=== PATIENT | female | born 1975 | race Hispanic/Latino ===

== ENCOUNTER 2020-07-09 09:17 | Emergency (ER) | payer BC, OTHER ==
--- NOTE | 2020-07-09 10:22 | RAD REPORT ---
EXAM DESCRIPTION: RAD - Elbow Left 3 View - 07/09/2020 10:06 am CLINICAL HISTORY: Pain;Numbness/tingling COMPARISON: No comparisons FINDINGS: No fracture or dislocation seen.
--- NOTE | 2020-07-09 10:49 | EDPHYS ---
Physician Documentation [facility] Name: Carmen Butler Age: 44 yrs Sex: Female : 1975 Arrival Date: 07/09/2020 Time: 09:19 Bed 15 Private MD: ED Physician Ruben Escamilla HPI: 07/09 09:37 This 44 yrs old Female presents to ER via Unassigned with complaints of Fall snw Injury, Arm Pain. 09:37 Details of fall: The patient fell from an upright position, slipped in wet grass and snw landed on left elbow on the driveway. Onset: The symptoms/episode began/occurred suddenly, 5 day(s) ago, and became persistent. Associated injuries: The patient sustained left elbow, contusion, decreased range of motion, painful injury. Severity of symptoms: At their worst the symptoms were moderate. The patient has not experienced similar symptoms in the past. The patient has not recently seen a physician. pt taking tylenol and declines medication for pain at this time. Historical: - Allergies: 09:23 No Known Allergies; aa5 - PMHx: 09:23 Hypertension; aa5 - PSHx: 09:23 Tubal ligation; aa5 - Immunization history:: Adult Immunizations unknown. - Social history:: Smoking status: Patient denies any tobacco usage or history of. ROS: 09:37 Constitutional: Negative for fever, chills, and weight loss, Eyes: Negative for injury, snw pain, redness, and discharge, ENT: Negative for injury, pain, and discharge, Neck: Negative for injury, pain, and swelling, Cardiovascular: Negative for chest pain, palpitations, and edema, Respiratory: Negative for shortness of breath, cough, wheezing, and pleuritic chest pain, Abdomen/GI: Negative for abdominal pain, nausea, vomiting, diarrhea, and constipation, Back: Negative for injury and pain, : Negative for injury, bleeding, discharge, and swelling, Skin: Negative for injury, rash, and discoloration, Neuro: Negative for headache, weakness, numbness, tingling, and seizure, Psych: Negative for depression, anxiety, suicide ideation, homicidal ideation, and hallucinations. 09:37 MS/extremity: Positive for injury or acute deformity, decreased range of motion, pain, of the left elbow. Exam: 09:36 Constitutional: This is a well developed, well nourished patient who is awake, alert, snw and in no acute distress. Head/Face: Normocephalic, atraumatic. Eyes: Pupils equal round and reactive to light, extra-ocular motions intact. Lids and lashes normal. Conjunctiva and sclera are non-icteric and not injected. Cornea within normal limits. Periorbital areas with no swelling, redness, or edema. ENT: Nares patent. No nasal discharge, no septal abnormalities noted. Tympanic membranes are normal and external auditory canals are clear. Oropharynx with no redness, swelling, or masses, exudates, or evidence of obstruction, uvula midline. Mucous membranes moist. Neck: Trachea midline, no thyromegaly or masses palpated, and no cervical lymphadenopathy. Supple, full range of motion without nuchal rigidity, or vertebral point tenderness. No Meningismus. Chest/axilla: Normal chest wall appearance and motion. Nontender with no deformity. No lesions are appreciated. Cardiovascular: Regular rate and rhythm with a normal S1 and S2. No gallops, murmurs, or rubs. Normal PMI, no JVD. No pulse deficits. Respiratory: Lungs have equal breath sounds bilaterally, clear to auscultation and percussion. No rales, rhonchi or wheezes noted. No increased work of breathing, no retractions or nasal flaring. Abdomen/GI: Soft, non-tender, with normal bowel sounds. No distension or tympany. No guarding or rebound. No evidence of tenderness throughout. Back: No spinal tenderness. No costovertebral tenderness. Full range of motion. Skin: Warm, dry with normal turgor. Normal color with no rashes, no lesions, and no evidence of cellulitis. Neuro: Awake and alert, GCS 15, oriented to person, place, time, and situation. Cranial nerves II-XII grossly intact. Motor strength 5/5 in all extremities. Sensory grossly intact. Cerebellar exam normal. Normal gait. Psych: Awake, alert, with orientation to person, place and time. Behavior, mood, and affect are within normal limits. 09:36 Musculoskeletal/extremity: Extremities: grossly normal except: noted in the left radial head area: decreased ROM, swelling, tenderness, Circulation is intact in all extremities. Sensation intact. occasional tingling to left fingers with different movements Vital Signs: 09:23 BP 147 / 76; Pulse 67; Resp 16 S; Temp 98.5(O); Pulse Ox 100% on R/A; Weight 72.57 kg aa5 (R); Height 4 ft. 11 in. (149.86 cm) (R); Pain 2/10; 11:06 BP 117 / 65; Pulse 62; Resp 14; Pulse Ox 96% on R/A; zb 09:23 Body Mass Index 32.32 (72.57 kg, 149.86 cm) aa5 MDM: 09:31 Patient medically screened. snw 10:50 Data reviewed: vital signs, nurses notes. Data interpreted: Pulse oximetry: on room air snw is 100 %. Interpretation: normal. Counseling: I had a detailed discussion with the patient and/or guardian regarding: the historical points, exam findings, and any diagnostic results supporting the discharge/admit diagnosis, the presence of at least one elevated blood pressure reading (>120/80) during this emergency department visit, radiology results, the need for outpatient follow up, to return to the emergency department if symptoms worsen or persist or if there are any questions or concerns that arise at home. Special discussion: I have referred the patient to see his PCP for further evaluation of high blood pressure. Based on the history and exam findings, there is no indication for further emergent testing or inpatient evaluation. I discussed with the patient/guardian the need to see the orthopedic surgeon for further evaluation of the symptoms. I discussed with the patient/guardian the need to see the primary care provider for further evaluation of the symptoms. 07/09 09:36 Order name: Elbow Left 3 View XRAY; Complete Time: 10:26 snw Administered Medications: No medications were administered Disposition: 07/10 07:48 Co-signature as Attending Physician, Ruben Escamilla MD I agree with the assessment and kdr plan of care. Disposition: 07/09/20 10:48 Discharged to Home. Impression: Fall on same level from slipping, tripping and stumbling, Left elbow contusion. - Condition is Stable. - Discharge Instructions: Fall Prevention in the Home, RICE for Routine Care of Injuries, Elbow Contusion, How to Use a Sling. - Prescriptions for Diclofenac Sodium 75 mg Oral Tablet Sustained Release - take 1 tablet by ORAL route 2 times per day; 30 tablet. orphenadrine citrate 100 mg Oral Tablet Sustained Release - take 1 tablet by ORAL route 2 times per day As needed; 20 tablet. - Medication Reconciliation Form, Thank You Letter, Antibiotic Education, Prescription Opioid Use form. - Follow up: Emergency Department; When: As needed; Reason: Worsening of condition. Follow up: Private Physician; When: 2 - 3 days; Reason: Recheck today's complaints, Continuance of care, Re-evaluation by your physician. Signatures: Dispatcher [employer] EDMS Ruben Escamilla MD MD kdr Waters, Shelly, INTERNET SYSTEMS ADMINISTRATOR-C INTERNET SYSTEMS ADMINISTRATOR-Csnw Babs Benjamin, RN RN aa5 Brandie Putnam RN RN zb Corrections: (The following items were deleted from the chart) 07/09 11:08 10:48 07/09/2020 10:48 Discharged to Home. Impression: Fall on same level from zb slipping, tripping and stumbling; Left elbow contusion. Condition is Stable. Forms are Medication Reconciliation Form, Thank You Letter, Antibiotic Education, Prescription Opioid Use. Follow up: Emergency Department; When: As needed; Reason: Worsening of condition. Follow up: Private Physician; When: 2 - 3 days; Reason: Recheck today's complaints, Continuance of care, Re-evaluation by your physician. snw
--- NOTE | 2020-07-09 10:49 | ER ---
Nurse's Notes [facility] Name: Carmen Butler Age: 44 yrs Sex: Female : 1975 Arrival Date: 07/09/2020 Time: : Bed 15 Private MD: Diagnosis: Fall on same level from slipping, tripping and stumbling;Left elbow contusion Presentation: 07/09 09:23 Chief complaint: Patient states: "I slipped on some mud and fell a few days ago and aa5 landed on concrete". pt c/o pain to left arm, worse to left elbow. 09:23 Acuity: NATHALY 4 aa5 09:23 Method Of Arrival: Ambulatory aa5 :23 Coronavirus screen: Client denies travel out of the [place] in the last 14 days. At this aa5 time, the client does not indicate any symptoms associated with coronavirus-19. Ebola Screen: Patient negative for fever greater than or equal to 101.5 degrees Fahrenheit, and additional compatible Ebola Virus Disease symptoms. Initial Sepsis Screen: Does the patient meet any 2 criteria? No. Patient's initial sepsis screen is negative. Does the patient have a suspected source of infection? No. Patient's initial sepsis screen is negative. Risk Assessment: Do you want to hurt yourself or someone else? Patient reports no desire to harm self or others. 09:23 Onset of symptoms was June 2020. aa5 Historical: - Allergies: 09: No Known Allergies; aa5 - PMHx: 09: Hypertension; aa5 - PSHx: : Tubal ligation; aa5 - Immunization history:: Adult Immunizations unknown. - Social history:: Smoking status: Patient denies any tobacco usage or history of. Screenin:27 Abuse screen: Denies threats or abuse. Denies injuries from another. Nutritional zb screening: No deficits noted. Tuberculosis screening: No symptoms or risk factors identified. Fall Risk None identified. Assessment: 10:25 General: Appears in no apparent distress. uncomfortable, Behavior is calm, cooperative, zb appropriate for age. Pain: Complains of pain in left arm Pain does not radiate. Pain currently is 3 out of 10 on a pain scale. Quality of pain is described as burning, aching, Pain began "couple days ago" Is continuous. Neuro: Level of Consciousness is awake, alert, obeys commands, Oriented to person, place, time, situation. Cardiovascular: Capillary refill < 3 seconds in bilateral fingers Patient's skin is warm and dry. Respiratory: Airway is patent Respiratory effort is even, unlabored, Respiratory pattern is regular, symmetrical. GI: Abdomen is round non-distended. : No signs and/or symptoms were reported regarding the genitourinary system. EENT: No signs and/or symptoms were reported regarding the EENT system. Derm: Skin is intact, is healthy with good turgor, Skin is pink, warm \\T\\ dry. Musculoskeletal: Capillary refill < 3 seconds, in bilateral fingers. Range of motion: limited in left arm Swelling present in left arm. 11:00 Reassessment: Patient appears in no apparent distress at this time. Patient and/or zb family updated on plan of care and expected duration. Pain level reassessed. Patient is alert, oriented x 3, equal unlabored respirations, skin warm/dry/pink. discussed POC. PVU. given sling. Vital Signs: 09:23 BP 147 / 76; Pulse 67; Resp 16 S; Temp 98.5(O); Pulse Ox 100% on R/A; Weight 72.57 kg aa5 (R); Height 4 ft. 11 in. (149.86 cm) (R); Pain 2/10; 11:06 BP 117 / 65; Pulse 62; Resp 14; Pulse Ox 96% on R/A; zb 09:23 Body Mass Index 32.32 (72.57 kg, 149.86 cm) aa5 ED Course: 09:19 Patient arrived in ED. ag5 09:23 Arm band placed on Patient placed in an exam room, on a stretcher. aa5 09:30 Flavia Mathews FNP-C is PHCP. snw 09:30 Ruben Escamilla MD is Attending Physician. snw 09:45 Triage completed. aa5 10:06 Elbow Left 3 View XRAY In Process Unspecified. EDMS 10:24 Brandie Putnam RN is Primary Nurse. zb 10:27 Patient has correct armband on for positive identification. Door closed. Noise zb minimized. Warm blanket given. 11:07 No provider procedures requiring assistance completed. Patient did not have IV access zb during this emergency room visit. Administered Medications: No medications were administered Outcome: 10:48 Discharge ordered by MD. ferreira 11:07 Discharged to home ambulatory. benito 11:07 Condition: stable 11:07 Discharge instructions given to patient, Instructed on discharge instructions, follow up and referral plans. medication usage, Demonstrated understanding of instructions, follow-up care, medications, Prescriptions given X 2. 11:08 Patient left the ED. benito Signatures: Dispatcher [employer] EDMS Flavia Mathews, TIRE MAN-C TIRE MAN-Csnw Babs Benjamin, RN RN tyler5 Abby Devries5 Brandie Putnam, RN RN benito
[2020-07-10 10:02] VITALS: TEMP 98.5
[2020-07-10 10:07] VITALS: BP 117/65; O2SAT 96
== END 2020-07-09 11:08 | disposition home or self-care (01) ==
LOC: ER 09:17
DX: S50.02XA Contusion of left elbow, initial encounter (principal); W01.0XXA Fall on same level from slipping, tripping and stumbling without subsequent striking against object, initial encounter; Y93.01 Activity, walking, marching and hiking; Y92.89 Other specified places as the place of occurrence of the external cause; I10 Essential (primary) hypertension
CPT/HCPCS: 99283

== ENCOUNTER 2020-08-15 06:12 | Emergency (ER) | payer BC ==
[2020-08-15] MEDS ORDERED: ACETAMINOPHEN 500 MG TAB ONE (08:23)
[2020-08-15 08:52] LABS: Protime INR 1.03
[2020-08-15 08:57] LABS: Basophils % 0.3 % (0-1.3); Hematocrit 43.9 % (36.0-45.0); Lymphocytes % 12.6 % (15.3-44.8); RBC Red Blood Cell Count 4.79 M/uL (3.86-4.86)
[2020-08-15 09:09] LABS: BUN Blood Urea Nitrogen 12 mg/dL (7-18); Bicarbonate 25 mmol/L (21-32); Ferritin 100.4 ng/mL (8-388); Glucose Level 96 mg/dL (74-106); Potassium 3.7 mmol/L (3.5-5.1); Sodium Level 134 mmol/L (136-145); Troponin (Emerg Dept Use Only) < 0.02 ng/mL (0.0-0.045)
[2020-08-15] MEDS ORDERED: METHYLPREDNISOLONE 125 MG INJ ONE (10:04)
[2020-08-15] MEDS ORDERED: NA CHLORIDE 0.9% 500 ML ONE (10:04)
--- NOTE | 2020-08-15 11:37 | RAD REPORT ---
EXAM DESCRIPTION: Gab Single View08/15/2020 8:35 am CLINICAL HISTORY: Cough COMPARISON: 2014 FINDINGS: Mild bilateral pulmonary opacities. The heart is normal size IMPRESSION: Mild bilateral pulmonary opacities probably pneumonia
--- NOTE | 2020-08-15 12:06 | ER ---
Nurse's Notes [facility] Name: Carmen Butler Age: 44 yrs Sex: Female : 1975 Arrival Date: 08/15/2020 Time: 06:20 Bed 16 Private MD: Antonio Estrada T Diagnosis: Coronavirus infection, unspecified;Pneumonia, unspecified organism Presentation: 08/15 06:46 Chief complaint: Patient states: Shortness of breath, complaint of difficulty to take lp1 deep breath; Diagnosed COVID positive on 08/06/20 at urgent care. Coronavirus screen: Client reports previous positive COVID test result. Date of collection: August 06, 2020. Ebola Screen: No symptoms or risks identified at this time. Initial Sepsis Screen: Does the patient meet any 2 criteria? HR > 90 bpm. Does the patient have a suspected source of infection? No. Patient's initial sepsis screen is negative. Risk Assessment: Do you want to hurt yourself or someone else? Patient reports no desire to harm self or others. Onset of symptoms was August 15, 2020. 06:46 Method Of Arrival: Ambulatory lp1 06:46 Acuity: NATHALY 3 lp1 Triage Assessment: 08:30 Respiratory: the patient has mild shortness of breath. iw JAVA J2EE ARCHITECT: 06:49 LMP 07/24/2020 lp1 Historical: - Allergies: 06:48 No Known Allergies; lp1 - Home Meds: 06:48 valsartan oral oral [Active]; amlodipine oral [Active]; Metoprolol Tartrate Oral lp1 [Active]; - PMHx: 06:48 Hypertension; lp1 - PSHx: 06:48 Tubal ligation; lp1 - Immunization history:: Adult Immunizations up to date. - Social history:: Smoking status: Patient denies any tobacco usage or history of. - Family history:: not pertinent. - Hospitalizations: : No recent hospitalization is reported. Screenin:49 Abuse screen: Denies threats or abuse. Denies injuries from another. Nutritional lp1 screening: No deficits noted. Tuberculosis screening: No symptoms or risk factors identified. Fall Risk None identified. Assessment: 08:30 General: Appears in no apparent distress. comfortable, Behavior is calm, cooperative. iw General: Reports fever for > 3 days, feeling ill for > 3 days, fatigue for >3 days. Pain: Denies pain. Neuro: Level of Consciousness is awake, alert, obeys commands, Oriented to person, place, time, situation. Cardiovascular: Rhythm is regular. Cardiovascular: Denies chest pain. Respiratory: Reports shortness of breath on exertion cough that is productive, Airway is patent Respiratory effort is even, unlabored, Breath sounds are clear bilaterally. Derm: Skin is intact, is healthy with good turgor. Musculoskeletal: Range of motion: intact in all extremities. 09:19 Reassessment: Patient appears in no apparent distress at this time. Patient and/or iw family updated on plan of care and expected duration. Pain level reassessed. Patient is alert, oriented x 3, equal unlabored respirations, skin warm/dry/pink. Vital Signs: 06:46 BP 107 / 64; Pulse 107; Resp 20; Temp 100.1(O); Pulse Ox 95% on R/A; Weight 72.57 kg lp1 (R); Height 4 ft. 11 in. (149.86 cm); 08:51 BP 109 / 60; Pulse 105; Resp 20 S; Pulse Ox 97% on R/A; iw 09:45 BP 98 / 59; Pulse 103; Resp 20; Pulse Ox 95% on R/A; iw 10:21 BP 101 / 59; Pulse 93; Resp 20 S; Pulse Ox 97% on R/A; iw 06:46 Body Mass Index 32.32 (72.57 kg, 149.86 cm) lp1 ED Course: 06:20 Patient arrived in ED. am2 06:20 Brian Kingston MD is Private Physician. am2 06:20 Antonio Estrada MD is Private Physician. am2 06:48 Triage completed. lp1 06:48 Arm band placed on. lp1 07:55 Jose David Mas MD is Attending Physician. rn 08:00 Rosa Meraz RN is Primary Nurse. iw 08:20 Inserted saline lock: 20 gauge in right antecubital area, using aseptic technique. iw 08:35 CXR XRAY In Process Unspecified. EDMS 08:45 Patient has correct armband on for positive identification. iw 12:04 Drew Santoro MD is Referral Physician. rn 12:39 No provider procedures requiring assistance completed. IV discontinued, intact, iw bleeding controlled, No redness/swelling at site. Pressure dressing applied. Administered Medications: : Drug: Tylenol 1000 mg Route: PO; iw :54 Drug: SOLU-Medrol 125 mg Route: IVP; Site: left antecubital; iw :54 Drug: NS 0.9% 500 ml Route: IV; Rate: bolus; Site: left antecubital; iw Outcome: 12:04 Discharge ordered by . rn 12:38 Discharged to home ambulatory, with family. iw 12:38 Condition: good 12:38 Discharge instructions given to patient, Instructed on discharge instructions, follow up and referral plans. medication usage, Demonstrated understanding of instructions, follow-up care, medications, Prescriptions given X 2. 12:39 Patient left the ED. iw Signatures: Dispatcher [employer] EDRosa Garnica RN RN iw Jose David Mas MD MD rn Pena, Laura, RN RN lp1 Ree Deutsch
--- NOTE | 2020-08-15 12:06 | EDPHYS ---
Physician Documentation [facility] Name: Carmen Butler Age: 44 yrs Sex: Female : 1975 Arrival Date: 08/15/2020 Time: 06:20 Bed 16 Private MD: Antonio Estrada T ED Physician Jose David Mas HPI: 08/15 09:35 This 44 yrs old Female presents to ER via Ambulatory with complaints of Cough, rn Breathing Difficulty, covid+. 09:35 The patient or guardian reports cough, difficulty breathing. Onset: The rn symptoms/episode began/occurred 1 week(s) ago. Severity of symptoms: At their worst the symptoms were mild, in the emergency department the symptoms are unchanged. Modifying factors: The symptoms are alleviated by nothing, the symptoms are aggravated by exertion. Associated signs and symptoms: Pertinent positives: fever, rhinorrhea, Pertinent negatives: chest pain. The patient has not experienced similar symptoms in the past. The patient has not recently seen a physician. Reports COVID +, tested last week, now 2 days of SOB, no chest pain, no hemoptysis. . CHILLER HAND: 06:49 LMP 07/24/2020 lp1 Historical: - Allergies: 06:48 No Known Allergies; lp1 - Home Meds: 06:48 valsartan oral oral [Active]; amlodipine oral [Active]; Metoprolol Tartrate Oral lp1 [Active]; - PMHx: 06:48 Hypertension; lp1 - PSHx: 06:48 Tubal ligation; lp1 - Immunization history:: Adult Immunizations up to date. - Social history:: Smoking status: Patient denies any tobacco usage or history of. - Family history:: not pertinent. - Hospitalizations: : No recent hospitalization is reported. ROS: 09:35 Constitutional: + fever Eyes: Negative for injury, pain, redness, and discharge, Neck: rn Negative for injury, pain, and swelling, Cardiovascular: Negative for chest pain, palpitations, and edema, Respiratory: + sob and cough Abdomen/GI: Negative for abdominal pain, nausea, vomiting, diarrhea, and constipation, Back: Negative for injury and pain, MS/Extremity: Negative for injury and deformity, Skin: Negative for injury, rash, and discoloration, Neuro: Negative for numbness, tingling, and seizure. Exam: 09:35 Constitutional: This is a well developed, well nourished patient who is awake, alert, rn and in no acute distress. Head/Face: Normocephalic, atraumatic. ENT: No stridor Cardiovascular: tachycardic, regular Respiratory: Mild tachypnea, no retractions Abdomen/GI: soft, non-tender Skin: Warm, dry MS/ Extremity: Pulses equal, no cyanosis. Neurovascular intact. Full, normal range of motion. Equal circumference. Neuro: Awake and alert, GCS 15, oriented to person, place, time, and situation. Cranial nerves II-XII grossly intact. Motor strength 5/5 in all extremities. Sensory grossly intact. Cerebellar exam normal. Normal gait. Vital Signs: 06:46 BP 107 / 64; Pulse 107; Resp 20; Temp 100.1(O); Pulse Ox 95% on R/A; Weight 72.57 kg lp1 (R); Height 4 ft. 11 in. (149.86 cm); 08:51 BP 109 / 60; Pulse 105; Resp 20 S; Pulse Ox 97% on R/A; iw 09:45 BP 98 / 59; Pulse 103; Resp 20; Pulse Ox 95% on R/A; iw 10:21 BP 101 / 59; Pulse 93; Resp 20 S; Pulse Ox 97% on R/A; iw 06:46 Body Mass Index 32.32 (72.57 kg, 149.86 cm) lp1 MDM: 07:56 Patient medically screened. rn 12:03 Differential Diagnosis: Bronchitis Upper Respiratory Infection Viral Syndrome Pneumonia rn Other COVID-19 pneumonia. Data reviewed: vital signs, nurses notes, lab test result(s), radiologic studies, plain films, and as a result, I will discharge patient. Counseling: I had a detailed discussion with the patient and/or guardian regarding: the historical points, exam findings, and any diagnostic results supporting the discharge/admit diagnosis, lab results, radiology results, the need for outpatient follow up, to return to the emergency department if symptoms worsen or persist or if there are any questions or concerns that arise at home. Response to treatment: the patient's symptoms have mildly improved after treatment, and as a result, I will discharge patient. Special discussion: I discussed with the patient/guardian in detail that at this point there is no indication for admission to the hospital. It is understood, however, that if the symptoms persist or worsen the patient needs to return immediately for re-evaluation. ED course: No oxygen requirement, mild pneumonia on CXR, will dc home with steroids and prn inhaler. . 08/15 07:57 Order name: Blood Culture Adult (2) rn 08/15 07:57 Order name: BMP; Complete Time: 11:08/15 07:57 Order name: C-Reactive Protein; Complete Time: 11:08/15 07:57 Order name: CBC with Diff; Complete Time: 11:08/15 07:57 Order name: D-Dimer; Complete Time: 11:08/15 07:57 Order name: Ferritin; Complete Time: 11:08/15 07:57 Order name: Procalcitonin; Complete Time: 11:08/15 07:57 Order name: PT-INR; Complete Time: 11:08/15 07:57 Order name: Ptt, Activated; Complete Time: 11:08/15 07:57 Order name: Troponin (emerg Dept Use Only); Complete Time: 11:08/15 07:57 Order name: CXR XRAY; Complete Time: 11:41 08/15 07:58 Order name: Blood Culture EDAL 08/15 07:57 Order name: EKG; Complete Time: 07:58 08/15 07:57 Order name: Cardiac monitoring; Complete Time: 08:34 08/15 07:57 Order name: Droplet/Contact Precautions; Complete Time: 08:34 08/15 07:57 Order name: EKG - Nurse/Tech; Complete Time: 08:51 08/15 07:57 Order name: IV Start; Complete Time: 08:34 08/15 07:57 Order name: Labs collected and sent; Complete Time: 08:34 08/15 07:57 Order name: O2 Per Protocol; Complete Time: 08:34 08/15 07:57 Order name: O2 Sat Monitoring; Complete Time: 08:34 rn Administered Medications: 08:26 Drug: Tylenol 1000 mg Route: PO; iw 09:54 Drug: SOLU-Medrol 125 mg Route: IVP; Site: left antecubital; iw 09:54 Drug: NS 0.9% 500 ml Route: IV; Rate: bolus; Site: left antecubital; iw Disposition: 08/15/20 12:04 Discharged to Home. Impression: Coronavirus infection, unspecified, Pneumonia, unspecified organism. - Condition is Stable. - Discharge Instructions: Community-Acquired Pneumonia, Adult, COVID-19. - Prescriptions for Prednisone 20 mg Oral Tablet - take 1 tablet by ORAL route as directed for 14 days Take 1 tablet by mouth twice daily for 7 days, then 1 tablet by mouth daily for 7 days, total of 14 days.; 21 tablet. Albuterol Sulfate 90 mcg/actuation - inhale 1-2 puff by INHALATION route every 4-6 hours; 1 Inhaler. - Medication Reconciliation Form, Thank You Letter, Antibiotic Education, Prescription Opioid Use form. - Follow up: Drew Santoro MD; When: 5 - 6 days; Reason: Recheck today's complaints, Re-evaluation by your physician. - Problem is new. - Symptoms have improved. Signatures: Dispatcher [employer] EDMS Rosa Meraz RN RN iw Jose David Mas MD MD rn Pena, Laura, RN RN lp1 Corrections: (The following items were deleted from the chart) 12:39 12:04 08/15/2020 12:04 Discharged to Home. Impression: Coronavirus infection, iw unspecified; Pneumonia, unspecified organism. Condition is Stable. Forms are Medication Reconciliation Form, Thank You Letter, Antibiotic Education, Prescription Opioid Use. Follow up: Drew Santoro; When: 5 - 6 days; Reason: Recheck today's complaints, Re-evaluation by your physician. Problem is new. Symptoms have improved. rn
[2020-08-15 12:45] VITALS: TEMP 100.1
[2020-08-15 12:51] VITALS: BP 101/59; O2SAT 97
== END 2020-08-15 12:39 | disposition home or self-care (01) ==
LOC: ER 06:12
DX: U07.1 COVID-19 (principal); J18.9 Pneumonia, unspecified organism; I10 Essential (primary) hypertension
CPT/HCPCS: 93005; 87040 ×2; 85025; 80048; 36415; 85610; 85379; 85730; 84484; 82728; 84145; 86140; 71045; 96374; 99284; J7040; J2930

== ENCOUNTER 2022-01-10 17:30 | Emergency (ER) | payer BC ==
--- NOTE | 2022-01-10 19:34 | ER ---
Nurse's Notes [facility] Name: Carmen Butler Age: 46 yrs Sex: Female : 1975 Arrival Date: 01/10/2022 Time: 17:32 Bed Waiting Private MD: Antonio Estrada T Diagnosis: ED Course: 01/10 17:32 Patient arrived in ED. as 17:33 Antonio Estrada MD is Private Physician. as 19:00 Patient's name was called from [facility]. No response. aa5 Administered Medications: No medications were administered Outcome: 19:34 Patient left the ED. ld1 Signatures: La Nena Gupta Audri RN RN aa5 Bhumi Pierce RN RN ld1 Corrections: (The following items were deleted from the chart) 19:03 19:03 Arm band placed on aa5 aa5
== END 2022-01-10 19:34 | disposition left against medical advice (07) ==
LOC: ER 17:30
DX: Z02.9 Encounter for administrative examinations, unspecified (principal)